=== PATIENT | male | born 1990 | race Two or more races ===

== ENCOUNTER 2017-10-19 10:02 | Emergency (ER) | payer OTHER ==
[~2017-10-19] VITALS: Ht 190.5 cm; Wt 113.4 kg
[2017-10-19] MEDS ORDERED: LIDOCAINE VISCOUS 2% UD 15 ML UDC ONE (10:20)
--- NOTE | 2017-10-19 10:25 | NUR ---
PATIENT TO ED DT PAINFUL ERECTION OF PENIS SINCE 9PM LAST NIGHT- PER PATIENT HE INJECTED TRIMIX LAST NIGHT. PATIENT IS NO DISTRESS. VSS
[2017-10-19] MEDS ORDERED: TERBUTALINE SULFATE 1 MG/ML VIAL ONE (10:26)
[2017-10-19] MEDS ORDERED: HYDROCODONE/APAP 10/325MG 1 EA TABLET ONE (10:27)
[2017-10-19] MEDS ORDERED: LIDOCAINE HCL/PF 1% 30 ML VIAL TP ONE (10:30)
[2017-10-19] MEDS ORDERED: LIDOCAINE SOLN 4% 50 ML BOTTLE TP ONE (10:30)
[2017-10-19] MEDS ORDERED: HYDROCODONE/APAP 10/325MG 1 EA TABLET PO ONE (10:30)
[2017-10-19] MEDS ORDERED: TERBUTALINE SULFATE 1 MG/ML VIAL SQ ONE (10:30)
[2017-10-19] MEDS ORDERED: PHENYLEPHRINE 10 MG/ML VIAL ONE ×2 (10:33→11:08)
--- NOTE | 2017-10-19 10:37 | NUR ---
MD MARTINEZ AT
[2017-10-19] MEDS ORDERED: PHENYLEPHRINE 10 MG/ML VIAL IV ONE (11:00)
--- NOTE | 2017-10-19 11:26 | NUR ---
PATIENT ON BED. VSS
[2017-10-19 11:55] VITALS: BP 148/98
--- NOTE | 2017-10-19 11:55 | NUR ---
Patient discharged to home in stable condition. Written and verbal after care instructions given. Patient verbalizes understanding of instruction.
== END 2017-10-19 11:56 | disposition home or self-care (01) ==
LOC: ER 10:05
DX: N48.30 Priapism, unspecified (principal)
CPT/HCPCS: 54220; 96372; 99284; A4606; J2370 ×2; J3105; J3490; Z7610

== ENCOUNTER 2017-12-02 21:03 | Emergency (ER) | payer OTHER ==
[~2017-12-02] VITALS: Ht 193 cm; Wt 104.3 kg
[2017-12-02 21:28] VITALS: BP 134/73
[2017-12-02 23:24] LABS: BASOPHILS % (AUTO) 0.6 % (0.0-2.0); EOSINOPHILS % (AUTO) 2.8 % (0.0-6.0); HEMATOCRIT 42 % (39-51); HEMOGLOBIN 14.3 g/dL (13.5-17.5); LYMPHOCYTES # (AUTO) 2.6 /CMM (0.8-4.8); LYMPHOCYTES % (AUTO) 41.1 % (20.0-44.0); MEAN CORPUSCULAR HGB CONC 34 g/dl (31.0-36.0); MEAN CORPUSCULAR VOLUME 92 fL (80-96); MONOCYTES # (AUTO) 0.5 /CMM (0.1-1.30); MONOCYTES % (AUTO) 8.1 % (2.0-12.0); NEUTROPHILS % (AUTO) 47.4 % (43.0-81.0); PLATELET COUNT (AUTO) 263 /CMM (150-450); RDW COEFFICIENT OF VARIATION 12.4 (11.5-15.0); WHITE BLOOD COUNT (AUTO) 6.4 K/uL (4.3-11.0)
[2017-12-02 23:31] LABS: CALCIUM, SERUM 8.5 mg/dL (8.5-10.1); CREATININE 1.6 mg/dL (0.6-1.3); POTASSIUM 3.8 mmol/L (3.5-5.1)
[2017-12-02 23:40] LABS: INR 0.93 (0.87-1.13)
--- NOTE | 2017-12-02 23:53 | NUR ---
PT LEFT WITHOUT D/C PAPERWORK. ER MD SAMUEL MADE AWARE.
== END 2017-12-02 23:54 | disposition home or self-care (01) ==
LOC: ER 21:09
DX: K92.1 Melena (principal); N28.9 Disorder of kidney and ureter, unspecified
CPT/HCPCS: 36415; 80048; 85025; 85730; 99284; A4606; Z7610

== ENCOUNTER 2017-12-13 10:44 | Emergency (ER) | payer OTHER ==
[~2017-12-13] VITALS: Ht 190.5 cm; Wt 108.9 kg
--- NOTE | 2017-12-13 10:56 | NUR ---
AAOX3, INJECTED TRIMEX TO HIS PENIS AND BEEN ERECTED X [address] LLAMAS AT FOR EVAL.
--- NOTE | 2017-12-13 11:22 | NUR ---
CALLED UROLOGIST NICCI LOPEZ, ON THE PHONE WITH DR LLAMAS.
--- NOTE | 2017-12-13 11:22 | NUR ---
Patient does not wish to proceed with medical care recommended by Dr. LLAMAS. Patient given information related to possible complications, up to and including , which could occur as a result of leaving the hospital at this time. Patient verbalizes understanding of risks involved due to leaving against medical advice. Patient has signed AMA form.
[2017-12-13 11:27] VITALS: BP 125/79
[2017-12-13] MEDS ORDERED: LIDOCAINE 1% INJ 50 ML MDV IJ ONE (11:30)
[2017-12-13] MEDS ORDERED: PHENYLEPHRINE 10 MG/ML VIAL IJ ONE (11:30)
--- NOTE | 2017-12-13 11:30 | NUR ---
NO MEDICATION WAS GIVEN, PATIENT SIGNED AMA. PATIENT CAN'T TAKE NORCO SINCE PATIENT IS DRIVING.
== END 2017-12-13 11:50 | disposition left against medical advice (07) ==
LOC: ER 10:45
DX: N48.33 Priapism, drug-induced (principal)
CPT/HCPCS: 99283; A4606; Z7610

== ENCOUNTER 2018-03-22 23:22 | Emergency (ER) | payer OTHER ==
[~2018-03-22] VITALS: Ht 193 cm; Wt 108.9 kg
[2018-03-22 23:45] VITALS: BP 144/75
[2018-03-23] MEDS ORDERED: CEFTRIAXONE 500 MG VIAL ONE (00:27)
[2018-03-23] MEDS ORDERED: LIDOCAINE 1%-EPI 1:100,000 20 ML VIAL ONE (00:27)
[2018-03-23] MEDS ORDERED: AZITHROMYCIN 250 MG TABLET ONE (00:27)
[2018-03-23] MEDS ORDERED: CEFTRIAXONE 500 MG VIAL IM ONE (00:30)
[2018-03-23] MEDS ORDERED: AZITHROMYCIN 250 MG TABLET PO ONE (00:30)
[2018-03-23 00:37] LABS: APPEARANCE,URINE CLOUDY (CLEAR); BILIRUBIN,URINE NEGATIVE (NEGATIVE); BLOOD, URINE TRACE Ery/uL (NEGATIVE); COLOR,URINE YELLOW (YELLOW); KETONES,URINE NEGATIVE (NEGATIVE); LEUKOCYTE ESTERASE ,URINE 2+ (NEGATIVE); NITRITE, URINE NEGATIVE (NEGATIVE); PH,URINE 6.5 (5.0-8.0); PROTEIN,URINE NEGATIVE (NEGATIVE); UGLUCOSE NEGATIVE (NEGATIVE)
[2018-03-23 00:44] LABS: BACTERIA,URINE Few /HPF (None Seen); SQUAMOUS EPITHELIAL CELL,UR Rare /HPF (None Seen); WBC,URINE TOO NUMEROUS TO COUN /HPF (0-3)
== END 2018-03-23 01:02 | disposition home or self-care (01) ==
LOC: ER 23:24
DX: A64 Unspecified sexually transmitted disease (principal); N39.0 Urinary tract infection, site not specified
CPT/HCPCS: 81001; 87086; 87491; 87591; 96372; 99284; A4606; J0696; J3490; Z7610; 81000-TC

== ENCOUNTER 2019-01-18 05:39 | Emergency (ER) | payer OTHER ==
[~2019-01-18] VITALS: Ht 190.5 cm; Wt 102.1 kg
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
--- NOTE | 2019-01-18 06:18 | NUR ---
at the bed side
[2019-01-18 06:39] VITALS: BP 129/77
--- NOTE | 2019-01-18 06:39 | NUR ---
Patient discharged to home in stable condition. Rx and Written and verbal after care instructions given. Patient verbalizes understanding of instruction.
== END 2019-01-18 06:40 | disposition home or self-care (01) ==
LOC: ER 05:41
DX: T63.481A Toxic effect of venom of other arthropod, accidental (unintentional), initial encounter (principal); Y92.89 Other specified places as the place of occurrence of the external cause

== ENCOUNTER 2019-05-11 06:29 | Emergency (ER) | payer OTHER ==
[~2019-05-11] VITALS: Ht 190.5 cm; Wt 108.0 kg
--- NOTE | 2019-05-11 06:42 | NUR ---
PT INESSELJesus. AAOX4. AMBULATORY. C/O SOB AND FEELING STRESSED DUE TO WORK. PER PATIENT "I HAVE BEEN FEELING STRESSED AND I GET THESE ATTACKS AND GET SOB." PT PLACED ON MONITOR AND PULSE OX. NO ACUTE DISTRESS NOTED. BREATHING EVEN AND UNLABORED. -PAIN. MD AT BEDSIDE. WILL CONTINUE TO MONITOR.
--- NOTE | 2019-05-11 06:53 | NUR ---
Patient discharged to home in stable condition. Written and verbal after care instructions given. Patient verbalizes understanding of instruction and RX. Pt ambulatory with a steady gait.
[2019-05-11 06:54] VITALS: BP 144/82
== END 2019-05-11 06:55 | disposition home or self-care (01) ==
LOC: ER 06:32
DX: F41.0 Panic disorder [episodic paroxysmal anxiety] (principal)

== ENCOUNTER 2019-05-19 10:51 | Emergency (ER) | payer OTHER ==
[~2019-05-19] VITALS: Ht 193 cm; Wt 108.9 kg
--- NOTE | 2019-05-19 11:20 | NUR ---
"ABDOMINAL PAIN, DIARRHEA THAT STARTED YESTERDAY" pt aaox4, -sob, nad noted, vss, pending md moreno
[2019-05-19] MEDS ORDERED: IV NS 0.9% 1,000 ML BAG IV ONE (12:00)
[2019-05-19 12:10] LABS: BASOPHILS % (AUTO) 0.4 % (0.0-2.0); EOSINOPHILS % (AUTO) 1.4 % (0.0-6.0); HEMATOCRIT 43 % (39-51); LYMPHOCYTES # (AUTO) 1.1 /CMM (0.8-4.8); LYMPHOCYTES % (AUTO) 24.1 % (20.0-44.0); MEAN CORPUSCULAR HGB CONC 33 g/dl (31.0-36.0); MEAN CORPUSCULAR VOLUME 101 fL (80-96); MONOCYTES # (AUTO) 0.4 /CMM (0.1-1.30); MONOCYTES % (AUTO) 8.5 % (2.0-12.0); NEUTROPHILS # (AUTO) 2.9 /CMM (1.8-8.9); NEUTROPHILS % (AUTO) 65.6 % (43.0-81.0); PLATELET COUNT (AUTO) 240 /CMM (150-450); RED BLOOD CELL COUNT(AUTO) 4.24 MIL/uL (4.5-6.0); WHITE BLOOD COUNT (AUTO) 4.5 K/uL (4.3-11.0)
[2019-05-19 12:27] LABS: ALBUMIN 3.7 g/dL (3.4-5.0); BILIRUBIN,DIRECT 0.1 mg/dL (0.0-0.2); BILIRUBIN,TOTAL 0.6 mg/dL (0.2-1.0); CALCIUM, SERUM 8.6 mg/dL (8.5-10.1); CREATININE 1.6 mg/dL (0.6-1.3); POTASSIUM 4.1 mmol/L (3.5-5.1)
--- NOTE | 2019-05-19 12:59 | NUR ---
Patient discharged to home in stable condition. Written and verbal after care instructions given. Patient verbalizes understanding of instruction. IV removed. Catheter intact and site benign. Pressure and 4x4 applied to site. No bleeding noted.
[2019-05-19 13:28] VITALS: BP 121/69
== END 2019-05-19 12:59 | disposition home or self-care (01) ==
LOC: ER 10:52
DX: R19.7 Diarrhea, unspecified (principal); E86.0 Dehydration; D75.89 Other specified diseases of blood and blood-forming organs
CPT/HCPCS: 36415; 80048-TC; 80076-TC; 83690-TC; 85025-TC; J7030

== ENCOUNTER 2020-04-07 19:39 | Emergency (ER) | payer OTHER ==
[~2020-04-07] VITALS: Ht 193 cm; Wt 108.9 kg
[2020-04-07 19:40] VITALS: BP 161/98
[2020-04-07] MEDS ORDERED: CEFTRIAXONE 1 G VIAL IM ONE (20:00)
[2020-04-07] MEDS ORDERED: PENICILLIN G BENZATHINE 2.4 MMU/4 ML ML IM ONE ×2 (20:00→20:10)
[2020-04-07] MEDS ORDERED: AZITHROMYCIN 250 MG TABLET PO ONE (20:00)
[2020-04-07] MEDS ORDERED: LIDOCAINE /MPF 1% VIAL 5 ML VIAL ONE (20:09)
[2020-04-07] MEDS ORDERED: AZITHROMYCIN 250 MG TABLET ONE (20:09)
[2020-04-07] MEDS ORDERED: CEFTRIAXONE 500 MG VIAL ONE (20:09)
[2020-04-07 20:58] LABS: APPEARANCE,URINE Slightly Cloudy (CLEAR); BILIRUBIN,URINE MODERATE (NEGATIVE); BLOOD, URINE Negative Ery/uL (NEGATIVE); KETONES,URINE 15 (NEGATIVE); LEUKOCYTE ESTERASE ,URINE Negative (NEGATIVE); NITRITE, URINE Negative (NEGATIVE); PROTEIN,URINE Trace mg/dl (NEGATIVE); UGLUCOSE Negative (NEGATIVE); UROBILINOGEN,URINE >=8.0 EU/dL (0.2)
[2020-04-07 21:08] LABS: COLOR,URINE DARK YELLOW (YELLOW)
[2020-04-07 21:10] LABS: BACTERIA,URINE Few /HPF (None Seen); SQUAMOUS EPITHELIAL CELL,UR Few /HPF (None Seen)
[2020-04-07 21:11] LABS: RBC,URINE 0-2 /HPF (0-2); URINE AMORPHOUS PHOSPHATES Moderate /HPF (None Seen); WBC,URINE 0-2 /HPF (0-3)
--- NOTE | 2020-04-07 21:19 | NUR ---
Patient discharged to home in stable condition. Written and verbal after care instructions given. Patient verbalizes understanding of instruction.
== END 2020-04-07 21:20 | disposition home or self-care (01) ==
LOC: ER 19:42
DX: Z20.2 Contact with and (suspected) exposure to infections with a predominantly sexual mode of transmission (principal)
CPT/HCPCS: 81001; 87086; 87491; 96372 ×2; 99284; J0558; J0696; J3490; 81000-TC

== ENCOUNTER 2021-01-12 22:38 | Emergency (ER) | payer MEDICAID, OTHER ==
[~2021-01-12] VITALS: Ht 190.5 cm; Wt 104.3 kg
[2021-01-12 22:38] VITALS: BP 121/82
[2021-01-12] MEDS ORDERED: CEFTRIAXONE 500 MG VIAL ONE (23:36)
[2021-01-12] MEDS ORDERED: LIDOCAINE /MPF 1% VIAL 5 ML VIAL ONE (23:36)
[2021-01-12] MEDS ORDERED: DOXY-326 PO (23:38)
[2021-01-12] MEDS: CEFTRIAXONE 500 MG VIAL IM ONE (23:42)
--- NOTE | 2021-01-12 23:49 | NUR ---
ANAL SWAB DONE AND SENT TO LAB
--- NOTE | 2021-01-12 23:49 | NUR ---
Patient discharged to home in stable condition. Written and verbal after care instructions given. Patient verbalizes understanding of instruction. Pt ambulatory with a steady gait
== END 2021-01-12 23:50 | disposition home or self-care (01) ==
LOC: ER 22:46
DX: A64 Unspecified sexually transmitted disease (principal)
CPT/HCPCS: 87491; 87591; 96372; 99283; J0696; J3490

== ENCOUNTER 2021-02-15 02:18 | Emergency (ER) | payer MEDICAID ==
[~2021-02-15] VITALS: Ht 193 cm; Wt 108.9 kg
[~2021-02-15 02:18] MED LIST: DOXY-326 PO
[2021-02-15 02:31] VITALS: BP 146/70
--- NOTE | 2021-02-15 02:52 | NUR ---
called lab for covid swab
--- NOTE | 2021-02-15 02:54 | NUR ---
pt refused pcr swab, aware
== END 2021-02-15 02:56 | disposition home or self-care (01) ==
LOC: ER 02:21
DX: Z20.822 Contact with and (suspected) exposure to COVID-19 (principal); Z60.2 Problems related to living alone; Z79.899 Other long term (current) drug therapy

== ENCOUNTER 2022-11-10 14:41 | Emergency (ER) | payer MEDICAID ==
[~2022-11-10] VITALS: Ht 193 cm; Wt 108.9 kg
[2022-11-10 15:42] VITALS: BP 134/90
== END 2022-11-10 16:25 | disposition home or self-care (01) ==
LOC: ER 14:46
DX: Z00.8 Encounter for other general examination (principal); Z60.2 Problems related to living alone; Z79.899 Other long term (current) drug therapy

== ENCOUNTER 2023-07-30 10:19 | Inpatient (IN) | payer MEDICAID ==
[~2023-07-30] VITALS: Ht 193 cm; Wt 108.9 kg
[2023-07-30 10:19] VITALS: TEMP 98.3
[2023-07-30 12:18] LABS: BASOPHILS % (AUTO) 0.5 % (0.0-2.0); EOSINOPHILS # (AUTO) 0.1 K/uL (0.0-0.7); EOSINOPHILS % (AUTO) 1.5 % (0.0-6.0); HEMATOCRIT 43 % (39-51); HEMOGLOBIN 13.9 g/dL (13.5-17.5); LYMPHOCYTES # (AUTO) 1.2 K/uL (0.8-4.8); LYMPHOCYTES % (AUTO) 19.1 % (20.0-44.0); MEAN CORPUSCULAR HEMOGLOBIN 31 PG (26.0-33.0); MEAN CORPUSCULAR HGB CONC 33 g/dl (31.0-36.0); MEAN CORPUSCULAR VOLUME 95 fL (80-96); MONOCYTES # (AUTO) 0.4 K/uL (0.1-1.30); MONOCYTES % (AUTO) 6.4 % (2.0-12.0); NEUTROPHILS # (AUTO) 4.7 K/uL (1.8-8.9); NEUTROPHILS % (AUTO) 72.5 % (43.0-81.0); PLATELET COUNT (AUTO) 326 K/uL (150-450); RED BLOOD CELL COUNT(AUTO) 4.51 MIL/uL (4.5-6.0); RED CELL DISTRIBUTION WIDTH 13.9 % (11.5-15.0); WHITE BLOOD COUNT (AUTO) 6.5 K/uL (4.3-11.0)
[2023-07-30 12:22] LABS: CALCIUM, SERUM 8.2 mg/dL (8.5-10.1); CARBON DIOXIDE 27 mmol/L (21-32); CHLORIDE 106 mmol/L (98-107); CREATININE 1.6 mg/dL (0.6-1.3); GLUCOSE 80 mg/dL (74-106); POTASSIUM 4.3 mmol/L (3.5-5.1); SODIUM SERUM 139 mmol/L (136-145); UREA NITROGEN, BLOOD 11 mg/dL (7-18)
[2023-07-30 12:36] LABS: ALANINE AMINOTRANSFERASE 80 U/L (12-78); ALBUMIN 3.2 g/dL (3.4-5.0); ALKALINE PHOSPHATASE 43 U/L (46-116); ASPARTATE AMINOTRANSFERASE 36 U/L (15-37); BILIRUBIN,DIRECT 0.2 mg/dL (0.0-0.2); BILIRUBIN,TOTAL 0.6 mg/dL (0.2-1.0); NT-PRO BNP 3688 pg/mL (0-125); TOTAL PROTEIN, SERUM 6.7 g/dL (6.4-8.2)
[2023-07-30] MEDS ORDERED: FUROSEMIDE 40 MG/4 ML VIAL IV ONE (13:30)
[2023-07-30] MEDS ORDERED: FUROSEMIDE 40 MG/4 ML VIAL ONE (13:37)
[2023-07-30] MEDS ORDERED: DOLU1TAB PO (13:38)
[2023-07-30 15:59] VITALS: BP 135/98; O2SAT 97
== END 2023-07-30 15:55 | disposition left against medical advice (07) | DRG 194 ==
LOC: ER 10:19 → TELE 15:47
PROVIDERS: ADMIT Student in an Organized Health Care Education/Training Program; ATTEND Student in an Organized Health Care Education/Training Program
DX: I13.0 Hypertensive heart and chronic kidney disease with heart failure and stage 1 through stage 4 chronic kidney disease, or unspecified chronic kidney disease (principal); I31.39 Other pericardial effusion (noninflammatory); E46 Unspecified protein-calorie malnutrition; N18.9 Chronic kidney disease, unspecified; R74.01 Elevation of levels of liver transaminase levels; Z68.29 Body mass index [BMI] 29.0-29.9, adult; I50.21 Acute systolic (congestive) heart failure; Z20.822 Contact with and (suspected) exposure to COVID-19
CPT/HCPCS: 36415; 71045-TC; 80048-TC; 80076-TC; 83880; 84484-TC; 85025-TC; 93307-TC; G0378; J1940

== ENCOUNTER 2023-08-05 21:07 | Emergency (ER) | payer MEDICAID ==
[~2023-08-05] VITALS: Ht 302.3 cm; Wt 113.4 kg
[~2023-08-05 21:07] MED LIST changes: +DOLU1TAB PO; -DOXY-326 PO
[2023-08-05] MEDS ORDERED: FLUC150T PO (22:38)
[2023-08-05 22:59] VITALS: BP 122/78; TEMP 98; O2SAT 99
== END 2023-08-05 23:00 | disposition home or self-care (01) ==
LOC: ER 21:12
DX: I50.9 Heart failure, unspecified (principal); B35.3 Tinea pedis; Z88.8 Allergy status to other drugs, medicaments and biological substances; Z60.2 Problems related to living alone

== ENCOUNTER → 2024-02-22 | Emergency (ER) | payer MEDICAID ==
[~2024-02-22] VITALS: Ht 193 cm; Wt 104.3 kg
[~2024-02-22] MED LIST changes: +FLUC150T PO
[2024-02-22 17:52] LABS: BASOPHILS % (AUTO) 0.7 % (0.0-2.0); EOSINOPHILS # (AUTO) 0.1 K/uL (0.0-0.7); EOSINOPHILS % (AUTO) 2.5 % (0.0-6.0); HEMATOCRIT 48 % (39-51); LYMPHOCYTES # (AUTO) 2.1 K/uL (0.8-4.8); LYMPHOCYTES % (AUTO) 41.4 % (20.0-44.0); MEAN CORPUSCULAR HEMOGLOBIN 32 PG (26.0-33.0); MEAN CORPUSCULAR HGB CONC 33 g/dl (31.0-36.0); MEAN CORPUSCULAR VOLUME 98 fL (80-96); MONOCYTES # (AUTO) 0.3 K/uL (0.1-1.30); MONOCYTES % (AUTO) 6.2 % (2.0-12.0); NEUTROPHILS # (AUTO) 2.5 K/uL (1.8-8.9); NEUTROPHILS % (AUTO) 49.2 % (43.0-81.0); PLATELET COUNT (AUTO) 205 K/uL (150-450); RED BLOOD CELL COUNT(AUTO) 4.96 MIL/uL (4.5-6.0); RED CELL DISTRIBUTION WIDTH 13.2 % (11.5-15.0); WHITE BLOOD COUNT (AUTO) 5.1 K/uL (4.3-11.0)
[2024-02-22 18:00] LABS: CALCIUM, SERUM 9.1 mg/dL (8.5-10.1); CARBON DIOXIDE 31 mmol/L (21-32); CHLORIDE 103 mmol/L (98-107); CREATININE 1.9 mg/dL (0.6-1.3); GLUCOSE 105 mg/dL (74-106); POTASSIUM 4.1 mmol/L (3.5-5.1); SODIUM SERUM 137 mmol/L (136-145); UREA NITROGEN, BLOOD 25 mg/dL (7-18)
[2024-02-22 18:13] LABS: NT-PRO BNP 575 pg/mL (0-125)
[2024-02-22 20:34] VITALS: BP 114/70; TEMP 98.4; O2SAT 80
== END | disposition home or self-care (01) ==
LOC: ER 16:15
DX: R07.89 Other chest pain (principal); Z79.899 Other long term (current) drug therapy; Z60.2 Problems related to living alone; Z88.1 Allergy status to other antibiotic agents
CPT/HCPCS: 36415; 71045-TC; 80048-TC; 83880; 84484-TC; 85025-TC

== ENCOUNTER 2024-12-19 13:33 | Emergency (ER) | payer MEDICAID ==
[~2024-12-19] VITALS: Ht 193 cm; Wt 104.3 kg
[2024-12-19 14:18] LABS: APPEARANCE,URINE CLEAR (CLEAR); BILIRUBIN,URINE Negative (NEGATIVE); BLOOD, URINE Large Ery/uL (NEGATIVE); COLOR,URINE YELLOW (YELLOW); KETONES,URINE Negative (NEGATIVE); LEUKOCYTE ESTERASE ,URINE Small (NEGATIVE); PROTEIN,URINE 100 mg/dl (NEGATIVE); UGLUCOSE >=1000 mg/dL (NEGATIVE); UROBILINOGEN,URINE 0.2 EU/dL (0.2)
[2024-12-19 14:19] LABS: NITRITE, URINE NEGATIVE (NEGATIVE)
[2024-12-19 14:22] LABS: RBC,URINE TOO NUMEROUS TO COUN /HPF (0-2)
[2024-12-19 14:23] LABS: ADD URINE CULTURE YES; BACTERIA,URINE Few /HPF (None Seen); SQUAMOUS EPITHELIAL CELL,UR Moderate /HPF (None Seen)
[2024-12-19 14:33] LABS: BASOPHILS % (AUTO) 0.4 % (0.0-2.0); EOSINOPHILS # (AUTO) 0.1 K/uL (0.0-0.7); EOSINOPHILS % (AUTO) 0.8 % (0.0-6.0); HEMATOCRIT 44 % (39-51); HEMOGLOBIN 14.2 g/dL (13.5-17.5); LYMPHOCYTES % (AUTO) 16.9 % (20.0-44.0); MEAN CORPUSCULAR HEMOGLOBIN 31 PG (26.0-33.0); MEAN CORPUSCULAR HGB CONC 33 g/dl (31.0-36.0); MEAN CORPUSCULAR VOLUME 93 fL (80-96); MONOCYTES # (AUTO) 0.9 K/uL (0.1-1.30); MONOCYTES % (AUTO) 7.7 % (2.0-12.0); NEUTROPHILS # (AUTO) 8.7 K/uL (1.8-8.9); NEUTROPHILS % (AUTO) 74.2 % (43.0-81.0); PLATELET COUNT (AUTO) 253 K/uL (150-450); RED BLOOD CELL COUNT(AUTO) 4.68 MIL/uL (4.5-6.0); RED CELL DISTRIBUTION WIDTH 14.7 % (11.5-15.0); WHITE BLOOD COUNT (AUTO) 11.8 K/uL (4.3-11.0)
[2024-12-19] MEDS ORDERED: CEFTRIAXONE 500 MG VIAL ONE (14:34)
[2024-12-19] MEDS: CEFTRIAXONE 1 G VIAL IM ONE (14:47)
[2024-12-19 14:48] LABS: CALCIUM, SERUM 8.9 mg/dL (8.5-10.1); CREATININE 1.6 mg/dL (0.6-1.3); POTASSIUM 4.5 mmol/L (3.5-5.1)
[2024-12-19] MEDS ORDERED: DOXY-326 PO (16:51)
[2024-12-19 17:09] VITALS: BP 121/80; TEMP 98.3; O2SAT 98
[2024-12-20 11:07] LABS: RAPID PLASMA REAGIN QUAL. Reactive (Non Reactive)
[2024-12-20 13:07] LABS: CHLAMYDIA TRACHOMATIS NAA Negative (Negative); NEISSERIA GONORRHOEAE NAA Negative (Negative)
== END 2024-12-19 17:11 | disposition home or self-care (01) ==
LOC: ER 13:38
DX: R31.9 Hematuria, unspecified (principal); Z20.2 Contact with and (suspected) exposure to infections with a predominantly sexual mode of transmission; Z79.624 Long term (current) use of inhibitors of nucleotide synthesis; Z79.899 Other long term (current) drug therapy
CPT/HCPCS: 99285; 76770; 86593; 86592; 96372; 85025; 80048; 82550; 81001; 36415; 87491; 87591; J0696; 87086-TC